=== PATIENT | male | born 1955 | race Caucasian/White ===

== ENCOUNTER 2016-07-13 00:29 | Day surgery (SDC) | payer MEDICARE, MEDICAID ==
[2016-07-13] VITALS (13 sets, daily range): BP systolic 99–125; BP diastolic 59–91; PULSE 69–86; RESP 17–24; O2SAT 94–96
[~2016-07-13] VITALS: Ht 170.2 cm; Wt 119.5 kg
[~2016-07-13 00:29] MED LIST: ATOR20TA PO; CARV6.252 PO; DIGO250T72 PO; FURO40TA4 PO; GABA-502 PO; INSLIS SUBQ; INSU100I13 SUBQ; LISI-571 PO; NITR0.4T SL; SPIR25TA3 PO; WARF4TAB6 PO
[2016-07-13] MEDS ORDERED: Ondansetron 2 mg/mL 2 mL Inj ONE (00:30)
[2016-07-13] MEDS ORDERED: EPHEDrine/NS 5 mg/mL 5 mL Syringe ONE (00:30)
[2016-07-13] MEDS ORDERED: Propofol 10,000 mCg/mL 20 mL Inj ONE (00:30)
[2016-07-13] MEDS ORDERED: fentaNYL-PF 50 mCg/mL 2 mL Inj ONE (00:30)
[2016-07-13] MEDS ORDERED: Dexamethasone 4 mg/mL Inj ONE (00:30)
[2016-07-13] MEDS ORDERED: Lidocaine PF 1% 30 mL Inj ONE (00:30)
[2016-07-13] MEDS ORDERED: 0.9% Sodium Chloride 1,000 ML IV SCH ×2 (07:05→16:25)
[2016-07-13] MEDS ORDERED: Methohexital 10 mg/mL 50 mL Inj IV SCH (07:05)
[2016-07-13 10:20] LABS: BASOPHILS % (AUTO) 0.5 % (0-3); EOSINOPHILS % (AUTO) 3.5 % (0-5); MONOCYTES % (AUTO) 7.3 % (4-12); Mean Corpuscular Hemoglobin 28.9 pg (27.0-35.0); Mean Corpuscular Volume 84.6 fL (81-100); NEUTROPHILS % (AUTO) 76.8 % (40-74); Platelet Count 147 bil/L (150-400)
--- NOTE | 2016-07-13 11:38 | PCM.HPANE ---
Patient Data Date of Service: July 13, 2016 (4658) Surgeon Admitting Provider: Attending Provider:Jesse Glaser MD Primary Care Physician:Danial Gaspar MD Other Provider: Reason for Visit Unspecified Atrial Fibrillation Ht/WT & BMI Height (Feet): 5 Height (Inches): 7.00 Weight (Kilograms): 118.600 Body Mass Index 41.04 Allergies Coded Allergies: No Known Allergies (Verified , 02/05/14) Past Anesthesia History Anesthesia History: Denies:: Abnormal Airway, Anesthesia Reactions, Difficult Intubation, Fam Anesthesia Reaction, Fam Malignant Hypertherm, Malignant Hyperthermia Diabetes History Hx Diabetes?: Yes (BS 97) Type of Diabetes: Type II Glycemic Control: Insulin Dependent MRSA MRSA: No Medications Blood Thinner: Aspirin and Coumadin Active Scripts Atorvastatin (Lipitor)20 Mg Dflqzh49 Mg PO HS 30 Days Prov:Yayo Ness MD 10/19/13 Reported Medications Insulin Glargine (Lantus U100 Solostar Insulin Pen)100 Unit/1 Ml Insuln.pen50 Unit SUBQ QPM-INSULIN #1 PENINJ Ref 0 02/05/14 Warfarin Sodium 4 Mg Tablet4 Mg PO per PCP 30 Days Ref 0 10/15/13 Spironolactone 25 Mg Zxisdi39 Mg PO DAILY #30 TABLET Ref 0 10/15/13 Nitroglycerin SL (Nitrostat)0.4 Mg Tab.subl0.4 Mg SL Q5MIN PRN For Chest Pain # 1 BOTTLE 10/15/13 Lisinopril 5 Mg Tablet5 Mg PO DAILY #30 TABLET Ref 0 10/15/13 Insulin Human Lispro (HumaLOG U100 Insulin Vial)100 Unit/Ml Xrbx51-35 Unit SUBQ AC PRN Per SS #1 VIAL Ref 0 Patient has been taking 15-20units Humalog before meals. This sliding scale below has not worked to bring blood sugars down to a managable level. Blood Sugar Lispro Correction <151 0 units 151-175 1 unit 176-200 2 units 201-225 3 units 226-250 4 units 251-275 5 units 276-300 6 units 301-325 7 units 326-350 8 units 351-375 9 units 376-400 10 units >400 12 units Check blood sugars before meals and at bedtime. Use correction factor only before meals. 10/15/13 Gabapentin 300 Mg Tpfzkwd853 Mg PO TID 30 Days Ref 0 10/15/13 Digoxin 250 Mcg Kwwbgm932 Mcg PO DAILY #30 TABLET Ref 0 10/15/13 Carvedilol 6.25 Mg Tablet6.25 Mg PO BIDWM Ref 0 10/15/13 Furosemide 40 Mg Ctzbqn84 Mg PO BID 30 Days 10/15/13 Discontinued Reported Medications Enoxaparin (Lovenox)100 Mg/Ml Bgxbkxw536 Mg SUBQ Q12 30 Days Ref 0 02/06/14 Potassium Chloride Powder (Klor-Con Powder)20 Meq Omyncy66 Meq PO DAILY 30 Days Ref 0 DISSOLVE CONTENTS OF ONE PACKET IN FULL GLASS OF WATER AND DRINK ONCE DAILY. 10/15/13 History History of ENT Problems?: No HEENT History: Positive for:: Cataracts Denies:: Abnormal Airway Difficult Intubation Dysphagia Hearing Problem Sinus Problem Denture Type: None Teeth Condition: Within Normal Limits Hx of Heart Problems?: Yes Cardiovascular History: Positive for:: Atrial Fibrillation (HX PAF) Cardiac Surgery (CABG 10/2008,AVR 10/2008,HEART CATH W/ STENT 09/2008,03/2012) Chest Pain Congestive Heart Failure (CARDIOMYOPATHY) Edema Heart Murmur (ECHO 05/2012 MPS 12/2013 W/ EF OF 38%) Hypertension (HYPERLIPIDEMIA) Irregular Heartbeat (HX PAF) Valvular Heart Disease (S/P AVR) Denies:: AICD Pacemaker Hx of Respiratory Problem?: Yes Respiratory History: Positive for:: Chest Surgery (quadrupal bypass and stent 2012, [facility]) Dyspnea ([place]) Denies:: Asthma COPD Cough Emphysema Hemoptysis Pneumonia Tuberculosis Use of C-PAP Machine (UNTREATED JEFF SLEEP STUDY 12/20/2013) Hx Neurologic Problems?: Yes Neurological History: Denies:: Alzheimer's Disease CVA Dementia Dizziness Headaches Parkinson's Disease Seizures Hx of GI Problems?: No Hx of Problems?: Yes Genitourinary History: Denies:: HX of Hemodialysis Kidney Stones HX of Peritoneal Dialysis: No Male Hx: Denies:: Prostate Problems Scrotal Mass Testicular Surgery Skin History: Positive for:: History Skin Disorders? (HX PSORIASIS/ECZEMA) Denies:: Pressure Ulcers Hx Musculoskeletal Problems?: No Musculoskeletal History: Denies:: Back Injury Joint Replacement Musculoskeletal Trauma Hx of Psycho/Social Problems?: No Psycho Social History: Denies:: Anxiety Hx Depression Hx Surgeries?: Yes (CABG,AVR,HEART CATH W/ STENT X2) Hx Any Other Health Problems?: Yes Other History: Positive for:: Hospitalization (PANCREATITIS 09/2013) Thyroid Disease Denies:: Cancer Endocrine Disease History Blood Transfusions: Positive for:: Accept Blood Products? Blood Transfusions Denies:: Blood Transfuse Reaction Hx Diabetes: Yes Hx Alcohol Use: NoHx Substance Use: No Smoking Status: Former Smoker Have You Smoked inLast 12 mo: No (QUIT RECENTLY) Stop/Bang Treated for Sleep Apnea?: Yes Do You Have a CPAP Machine?: No S-Snoring: Do You Snore Loudly: Yes JEFF Risk Assessment: High Risk, =/>3 Yes Risk Assessment Category Category 1A: Patient has history of documented sleep apnea, and HAS NOT received any narcotic, sedative or anesthesia administration during this stay. Category 1B: Patient has history of documented sleep apnea, and HAS received any narcotic , sedative or anesthesia administration during this stay Category 2: Patient has SUSPECTED Obstructive Sleep Apnea, and HAS received any narcotic , sedative or anesthesia administration during this stay. Category 3: Patient has SUSPECTED Obstructive Sleep Apnea and HAS NOT received narcotic, sedative or anesthesia administration during this stay. Category 4: Outpatient in Procedural Areas with known sleep apnea or who screen positive for High Risk via the STOP/BANG questionnaire. Exam Exam Vital Signs Vital Signs Date Time Temp Pulse Resp B/P Pulse Ox O2 Delivery O2 Flow Rate FiO2 07/13/16 10:01 36.6 69 17 118/91 94 Room Air General Appearance: Alert, Oriented X3, Cooperative HEENT/AIRWAY: MP 1 Lungs: Clear to Auscultation Heart: Other (afib) Meds/Labs/Diagnostics Labs Test 07/13/16 10:16 White Blood Count 8.0th/mm3 (3.8-10.1) Red Blood Count 4.47mil/mm3 (4.40-5.80) Hemoglobin 12.9g/dL (13.8-17.2) Hematocrit 37.8% (41.0-50.0) Mean Corpuscular Volume 84.6fL (81-100) Mean Corpuscular Hemoglobin 28.9pg (27.0-35.0) Mean Corpuscular Hemoglobin Concent 34.1% (32.0-37.0) Red Cell Distribution Width 16.0% (12.3-15.4) Platelet Count 147bil/L (150-400) Neutrophils (%) (Auto) 76.8% (40-74) Lymphocytes (%) (Auto) 11.8% (14-46) Monocytes (%) (Auto) 7.3% (4-12) Eosinophils (%) (Auto) 3.5% (0-5) Basophils (%) (Auto) 0.5% (0-3) Sodium Level 133mEq/L (134-144) Potassium Level 4.7mEq/L (3.5-5.2) Chloride Level 94mEq/L (97-108) Carbon Dioxide Level 25mmol/L (18-29) Blood Urea Nitrogen 51mg/dL (8-27) Creatinine 1.23mg/dL (0.76-1.27) Estimat Glomerular Filtration Rate 64mL/min (>59) Glucose Level 114mg/dL (60-99) Calcium Level 9.7mg/dL (8.5-10.1) Plan Impression Patient chart reviewed, patient interviewed and anesthestic plan with risks, benefits, and alternatives discussed, and informed consent obtained. NPO per Anesth. Guidelines: Yes ASA Physical Status: ASA3 Severe Disease Anesthetic Plan: GA Bene/Risks/Altern/Consents: Yes HP Complete Prior to Induction: Yes Jake Barba MD July 13, 2016 11:38
[2016-07-13] MEDS ORDERED: Lactated Ringer's 1,000 ML IV SCH (11:39)
[2016-07-13] MEDS ORDERED: Lactated Ringer's 500 ML IV PRN (11:39)
[2016-07-13] MEDS ORDERED: MetoCLOpramide 5 mg/mL 2 mL Inj IVPUSH PRN (11:40)
[2016-07-13] MEDS ORDERED: EPHEDrine Sulfate 50 mg/mL Inj IVPUSH PRN (11:40)
[2016-07-13] MEDS ORDERED: Phenylephrine 10,000 mCg/mL Inj IVPUSH PRN (11:40)
[2016-07-13] MEDS ORDERED: Ondansetron 2 mg/mL 2 mL Inj IVPUSH PRN ×2 (11:40→16:20)
--- NOTE | 2016-07-13 15:40 | NUR ---
Transfer to [facility] Pt transferred to [facility] room 2030. Pt arrived by wheelchair and transferred to bed with SBA. Pt is alert and oriented, is cooperative with all cares, independent in room, and is able to communicate his needs appropriately. Telemetry was initiated and tech was notified. Pt is saline locked with a left peripheral IV in his AC. All admission assessments completed.
[2016-07-13] MEDS ORDERED: HYDROcodone-APAP 5-325 mg Tablet PO PRN (16:20)
[2016-07-13] MEDS ORDERED: Insulin LISPRO 300 Unit/3 mL Inj SUBQ PRN (18:35)
--- NOTE | 2016-07-13 18:35 | HP ---
[address] [address] HISTORY AND PHYSICAL PATIENT: ANNA MARIE [place] : 1955 MR#: [id number] ADMIT: 07/13/2016 JOB ID: [id number] Service Date: 07/13/2016 CHIEF COMPLAINT: Dizziness. HISTORY: The patient is a 60-year-old male who is well known to me since 2008 when he underwent coronary artery bypass surgery x4 on November 08, 2008. He also had mechanical aortic valve replacement at that time. His ejection fraction was 25% to 30%. He was in sinus rhythm in December 2015. When he returned for followup in May 2016, he was found to be in atrial fibrillation of unknown duration. The patient reports more short of breath. He felt dizzy at times. He denies chest discomfort, orthopnea, or PND. The patient came in today for cardioversion. This was performed with biphasic 120 and 150 joules. However, the patient developed asystole which required temporary transcutaneous pacing for 10 seconds before he went back into atrial fibrillation. While he was on the monitor, he developed asystole for 7 seconds. PAST MEDICAL HISTORY: 1. Coronary artery bypass surgery x4 and mechanical aortic valve replacement on November 08, 2008. 2. Ischemic cardiomyopathy with ejection fraction 25% to 30%. 3. Hypertension. 4. Type 2 diabetes mellitus. 5. Hyperlipidemia. 6. Obstructive sleep apnea, untreated. 7. History of alcohol abuse, quit in November 2015. 8. Morbid obesity. 9. Psoriasis. CURRENT MEDICATIONS: 1. Atorvastatin 40 mg. h.s. 2. Carvedilol 6.25 mg b.i.d. 3. Digoxin 0.125 mg daily. 4. Furosemide 40 mg b.i.d. 5. Gabapentin 300 mg t.i.d. 6. Lantus insulin 50 units h.s. 7. Bisoprolol 15-20 units before meals. 8. Lisinopril 5 mg daily. 9. Nitroglycerin 0.4 mg sublingual p.r.n. 10. Spironolactone 25 mg daily. 11. Warfarin 4 mg adjusted for INR between 2 and 3. ALLERGIES: No known allergies. SOCIAL HISTORY: The patient used to smoke off and on, one pack per day for about 15 years. He quit smoking in the . He used to drink every night about three beers on the weekdays and four on the weekends. He quit drinking last year. FAMILY HISTORY: His mother and brother have diabetes. His father suffered a heart attack. REVIEW OF SYSTEMS: All 10 systems are reviewed and no significant change from previously stated above. EXAMINATION: Reveals a markedly obese male appearing in no acute distress. Temperature is 36.1. Blood pressure is 105/60. Pulse 64, irregularly irregular. Skin is warm and dry. Head and face have normal configuration. JVP was difficult to evaluate due to nuchal obesity. Chest: Normal expansion. Lungs are clear to auscultation. Heart: The first heart sound is variable. Mechanical 2nd heart sound. Grade 1/6 systolic ejection murmur at the left upper sternal border. Abdomen: Obese, nontender. Back: No CVA tenderness. Extremities: 2+ edema. No clubbing or cyanosis. Skin has hyperpigmentation in the lower extremity. Neurologic: Grossly intact. IMPRESSION: 1. Transient asystole for 7 seconds on monitor. 2. Atrial fibrillation of unknown duration. 3. History of congestive heart failure due to combined chronic systolic and diastolic heart failure. 4. Morbid obesity. 5. Status post coronary artery bypass surgery x4 and mechanical aortic valve replacement in 2009. 6. History of [id number]-[id number] smoking. 7. Hypertension. 8. Hyperlipidemia. 9. History of alcohol abuse. 10. Obstructive sleep apnea, untreated. PLAN: I will admit the patient to telemetry unit for observation. He will benefit from ICD implantation. MARIELOS
[2016-07-13] MEDS ORDERED: Insulin GLARgine 100 Unit/mL Syringe SUBQ SCH (21:00)
--- NOTE | 2016-07-13 21:52 | OP ---
[address] [address] OPERATIVE REPORT PATIENT: ANNA MARIE [place] : 1955 MR#: [id number] ADMIT: 07/13/2016 JOB ID: [id number] DATE OF SURGERY: 07/13/2016 SURGEON: Jesse Glaser PREOPERATIVE DIAGNOSIS(ES): Atrial fibrillation. POSTOPERATIVE DIAGNOSIS(ES): Atrial fibrillation. PROCEDURE: 1. Synchronous cardioversion. 2. Temporary transcutaneous pacing. PATIENT PROFILE: The patient is a 60 years old male with history of coronary artery bypass surgery x4 in 2008, obstructive sleep apnea, hypertension, hyperlipidemia, diabetes, history of tobacco and alcohol use. The patient has ischemic cardiomyopathy with ejection fraction of 25% to 30%. He went into atrial fibrillation of unknown duration. METHOD: Synchronous cardioversion was performed in the [facility] under IV anesthesia provided by Dr Barba. It was delivered with biphasic 120 and 150 joules. The patient developed transient asystole. Temporary transcutaneous pacing was performed for 10 seconds. The patient remains in atrial fibrillation. [facility]
[2016-07-14] MEDS ORDERED: Sodium Chloride LOK Flush 10 mL Syringe IVFLUSH SCH (00:30)
[2016-07-14 04:46] VITALS: BP 93/56; PULSE 70; RESP 18; O2SAT 94
[2016-07-14 04:49] VITALS: BP 97/64
--- NOTE | 2016-07-14 05:24 | NUR ---
Cardiac/Pain Pt Tele Afib/Flutter with IVCD, Pt had a 3.42 and 4.23 second pause this shift, Pt was asymptomatic. Pt c/o pain 10/10 in legs from neuropathy, administered 2 tabs Percocet and effective Pt able to rest for some of shift. Pt is scheduled to meet with Dr. Hampton in the AM for discussion regarding pacemaker placement. VSS no c/o of CP or SOB. Pt placed on 2L NC while sleeping as pt is awaiting a sleep study.
[2016-07-14 09:16] VITALS: BP 106/70; PULSE 67; RESP 16; O2SAT 95
--- NOTE | 2016-07-14 10:20 | PCM.DIMED ---
Discharge Instructions Date of Service July 14, 2016 Dates of Hospitalization 07/13/2016 Discharge Diagnosis Discharge Diagnosis atrail fibrillation with pause Diet Heart Healthy Activity No restrictions Call your provider Other (dizziness or passing out) Patient Instructions Follow-up Provider: Jesse Glaser MD Follow-up with PCP in: 1 week Jesse Glaser MD July 14, 2016 10:20
[2016-07-14 11:06] VITALS: PULSE 68
--- NOTE | 2016-07-14 11:53 | NUR ---
Social Work Note: Screen Note/Discharge Data& Assessment: EMR reviewed. Per pt is medically improved and ready for discharge. Vinay Smith is a 60 year old male here as a day surgery cardiology pt. Per pt is medically ready for discharge. SW me with pt and pt family at bedside to assess for any unmet needs. Pt and pt sister deny any other needs. Pt returning home with his sister via POV. Pt is not being started on any new medications per MD discharge paperwork. Pt is independent at baseline and independent in his room. No other discharge needs identified. Plan: Per pt is medically ready to discharge home via POV. Pt and pt sister deny any other needs. No other discharge needs identified. BROOKS Calderon
--- NOTE | 2016-07-14 13:32 | DIS ---
[address] [address] DISCHARGE SUMMARY PATIENT: ANNA MARIE [place] : 1955 MR#: [id number] ADMIT: 07/13/2016 JOB ID: [id number] DIS: 07/14/2016 DATE OF DISCHARGE: 07/14/2016 DISCHARGE DIAGNOSES: 1. Symptomatic bradycardia due to transient asystole. 2. Atrial fibrillation of unknown duration. SECONDARY DIAGNOSES: 1. Coronary artery bypass surgery x4 and mechanical aortic valve replacement on November 08, 2008. 2. Ischemic cardiomyopathy with ejection fraction 25% to 30%. 3. Hypertension. 4. Hyperlipidemia. 5. Type 2 diabetes mellitus. 6. Obstructive sleep apnea, untreated. 7. Morbid obesity. 8. History of 15 pack-year smoking. 9. History of alcohol abuse. HOSPITAL COURSE: The patient was found to have atrial fibrillation. The last time that he was in sinus rhythm was in December of 2015. He underwent unsuccessful synchronous cardioversion on July 13, 2016. While he was on the monitor, he was found to have a 7 second pause. The patient was put in observation overnight in the telemetry unit. While he was on the monitor, he had two more pauses that lasted for 6 seconds and 4 seconds. I discussed his case with Dr. Hampton. He agreed to perform biventricular ICD for this patient next week. DISCHARGE MEDICATIONS: Remain the same.
== END 2016-07-14 12:23 | disposition home or self-care (01) ==
LOC: SOUO 00:29 → PCC 14:53 → SOUO 07-14 12:23
PROVIDERS: ATTEND Internal Medicine Interventional Cardiology
DX: I48.91 Unspecified atrial fibrillation (principal); R00.1 Bradycardia, unspecified; E11.9 Type 2 diabetes mellitus without complications; I50.42 Chronic combined systolic (congestive) and diastolic (congestive) heart failure; I25.10 Atherosclerotic heart disease of native coronary artery without angina pectoris; I25.5 Ischemic cardiomyopathy; I10 Essential (primary) hypertension; E78.5 Hyperlipidemia, unspecified; G47.33 Obstructive sleep apnea (adult) (pediatric); E03.9 Hypothyroidism, unspecified; E66.01 Morbid (severe) obesity due to excess calories; Z68.41 Body mass index [BMI] 40.0-44.9, adult; Z95.1 Presence of aortocoronary bypass graft; Z79.4 Long term (current) use of insulin; Z95.2 Presence of prosthetic heart valve; Z79.01 Long term (current) use of anticoagulants; Z87.891 Personal history of nicotine dependence; Z87.898 Personal history of other specified conditions
CPT/HCPCS: 36415; 80048; 85025; 92960; 93005; J0690; J1100; J1815; J2250; J2405; J3010

== ENCOUNTER 2016-07-24 00:26 | Day surgery (SDC) | payer MEDICARE, MEDICAID ==
[~2016-07-24] VITALS: Ht 170.2 cm; Wt 118.0 kg
[2016-07-24] VITALS (11 sets, daily range): BP systolic 90–121; BP diastolic 53–86; PULSE 58–64; RESP 14–18; O2SAT 90–99
[~2016-07-24 00:26] MED LIST changes: -FURO40TA4 PO
[2016-07-24] MEDS ORDERED: 0.9% Sodium Chloride 1,000 ML IV SCH (06:55)
[2016-07-24 12:11] LABS: BASOPHILS % (AUTO) 0.5 % (0-3); EOSINOPHILS % (AUTO) 2.7 % (0-5); MONOCYTES % (AUTO) 8.3 % (4-12); Mean Corpuscular Volume 79.8 fL (81-100); NEUTROPHILS % (AUTO) 75.5 % (40-74); Platelet Count 141 bil/L (150-400)
[2016-07-24 12:25] LABS: INR 1.92 ratio
[2016-07-24] MEDS ORDERED: Vancomycin 1,000mg/200 mL NS IV ONE (12:36)
[2016-07-24] MEDS ORDERED: Heparin 10,000 Unit/1,000 mL NS Premix IV ONE (13:32)
[2016-07-24] MEDS ORDERED: fentaNYL-PF 50 mCg/mL 2 mL Inj ONE ×2 (13:33→16:40)
[2016-07-24] MEDS ORDERED: Vancomycin 1,000 mg Inj ONE (13:33)
[2016-07-24] MEDS ORDERED: Bupivacaine-MPF 0.5% 30 mL Inj ONE (13:33)
[2016-07-24] MEDS ORDERED: 0.9% Sodium Chloride 250 ML ONE (13:34)
[2016-07-24] MEDS ORDERED: Ondansetron 2 mg/mL 2 mL Inj ONE (13:48)
[2016-07-24] MEDS: 0.9% Sodium Chloride 1,000 ML IV SCH (16:49)
[2016-07-24] MEDS ORDERED: Ondansetron 2 mg/mL 2 mL Inj IVPUSH PRN (16:50)
--- NOTE | 2016-07-24 17:42 | DRSVH ---
PROCEDURE: X-RAY CHEST ONE VIEW, PORTABLE ([id number]) INDICATIONS: For new leads placed TECHNIQUE: One view of the chest was acquired. COMPARISON: [facility], CR, XR CHEST 2VW, 05/27/2016, 13:15. FINDINGS: Surgical changes and devices: Sternotomy with mediastinal postoperative changes, cardiac prosthesis a nd left-sided cardiac pacer. Lungs and pleura: New ill-defined right perihilar pulmonary opacities. Stable small right-sided pleur al effusion with minimal right basilar atelectasis. Left lung is clear. Mediastinum: Stable enlargement of the cardiac mediastinal silhouette. Bones and chest wall: No suspicious bony lesions. Overlying soft tissues appear unremarkable. IMPRESSION: 1. New ill-defined right perihilar pulmonary opacities may represent early infection. 2. Stable right-sided pleural effusion with right basilar atelectasis. Stable postoperative changes. Dictated by: Loy Chopra M.D. on 07/24/2016 at 17:39 Approved by: Loy Chopra M.D. on 07/24/2016 at 17:40
[2016-07-24] MEDS: HYDROcodone-APAP 5-325 mg Tablet PO PRN (20:07)
[2016-07-24] MEDS ORDERED: Insulin LISPRO Low-Dose Scale SUBQ PRN (20:10)
[2016-07-24] MEDS ORDERED: Dextrose 10% 250 ML IV PRN (20:30)
[2016-07-24] MEDS ORDERED: Vancomycin Inj 1,000 MG in IV Premix 1 EACH IV ONE (20:30)
--- NOTE | 2016-07-24 20:45 | PCM.CONPHA ---
Subjective Date of Service: July 24, 2016 Reason for Pharmacy Consult: Anticoagulation Management Objective Vital Signs Date Time Temp Pulse Resp B/P Pulse Ox O2 Delivery O2 Flow Rate FiO2 07/24/16 20:01 36.5 60 16 95/60 94 Room Air 07/24/16 19:00 64 16 113/79 99 Nasal Cannula 2.00 07/24/16 18:30 60 16 113/70 97 Nasal Cannula 2.00 07/24/16 18:15 60 16 121/86 97 Nasal Cannula 2.00 07/24/16 18:00 60 16 102/70 97 Nasal Cannula 2.00 07/24/16 17:45 60 16 98/78 97 Nasal Cannula 2.00 07/24/16 17:28 60 16 96/63 95 Nasal Cannula 2.00 07/24/16 17:25 60 16 90/65 90 Room Air 07/24/16 17:19 60 16 96/65 90 Room Air 07/24/16 12:12 36.9 58 14 94/54 95 Room Air Weight (Kilograms): 118.000 Height (Feet): 5 Height (Inches): 7.00 Test 07/24/16 12:00 07/24/16 20:19 White Blood Count 7.5th/mm3 (3.8-10.1) Red Blood Count 4.25mil/mm3 (4.40-5.80) Hemoglobin 11.9g/dL (13.8-17.2) Hematocrit 33.9% (41.0-50.0) Mean Corpuscular Volume 79.8fL (81-100) Mean Corpuscular Hemoglobin 28.0pg (27.0-35.0) Mean Corpuscular Hemoglobin Concent 35.1% (32.0-37.0) Red Cell Distribution Width 16.1% (12.3-15.4) Platelet Count 141bil/L (150-400) Neutrophils (%) (Auto) 75.5% (40-74) Lymphocytes (%) (Auto) 12.7% (14-46) Monocytes (%) (Auto) 8.3% (4-12) Eosinophils (%) (Auto) 2.7% (0-5) Basophils (%) (Auto) 0.5% (0-3) Prothrombin Time 20.8sec (8.1-12.5) Prothromb Time International Ratio 1.92ratio Hold Urine Received (Received) Assessment/Plan Assessment/Plan WARFARIN MANAGEMENT A\ 61yo M s/p ICD placement with history of Mechanical Aortic Valve Home Warfarin 4mg daily Goal INR 2-3 Current INR=1.92 HCT=33.9, Skw=646 P\ Continue home Warfarin 4mg tonight and check an INR with AM labs. Alvaro Nicolas [facility] July 24, 2016 20:45
[2016-07-25] MEDS: HYDROcodone-APAP 5-325 mg Tablet PO PRN (02:13)
[2016-07-25] MEDS: 0.9% Sodium Chloride 1,000 ML IV SCH ×2 (02:49→12:49)
[2016-07-25 03:44] VITALS: BP 101/62; PULSE 61; RESP 18; O2SAT 94
[2016-07-25 03:48] LABS: INR 1.9 ratio
[2016-07-25] MEDS ORDERED: Vancomycin Inj 1,000 MG in IV Premix 1 EACH IV ONE ×2 (04:50→06:53)
[2016-07-25 05:45] VITALS: PULSE 61
--- NOTE | 2016-07-25 06:26 | NUR ---
Transfer from [facility] Patient arrived from [facility] to [facility] 2026 at 2009. Pressure dressing removed from left upper chest ICD insertion site; dressing underneath is clean/dry/intact. Patient reports moderate incisional pain that responds well to hydrocodone-acetaminophen. Up to bathroom with standby assist. Left arm sling in place.
--- NOTE | 2016-07-25 06:29 | OP ---
[address] [address] OPERATIVE REPORT PATIENT: ANNA MARIE [place] : 1955 MR#: [id number] ADMIT: 07/24/2016 JOB ID: [id number] DATE OF SURGERY: 07/24/2016 PREOPERATIVE DIAGNOSIS(ES): 1. Severe ischemic cardiomyopathy with ejection fraction 20-25%. 2. Bifascicular block with wide QRS duration. 3. [place] Heart Association class 3 heart failure symptoms. 4. Sick sinus syndrome. 5. Paroxysmal atrial fibrillation. POSTOPERATIVE DIAGNOSIS(ES): 1. Severe ischemic cardiomyopathy with ejection fraction 20-25%. 2. Bifascicular block with wide QRS duration. 3. [place] Heart Association class III heart failure symptoms. 4. Sick sinus syndrome. 5. Paroxysmal atrial fibrillation. PROCEDURES PERFORMED: 1. Biventricular ICD implantation with a multitude lead ICD generator placement, RV ICD lead, coronary sinus left ventricular lead placement, right atrial pacemaker lead placement. 2. Coronary sinus venogram. 3. Fluoroscopy. SURGEON: Basilio Hampton MD, electrophysiology. PERSONAL LINES ADVISOR: Rosi Harry. IMPLANTED DEVICES: 1. [employer] pulse generator, model FG9883-02S, serial number [id number]. 2. RV lead [employer] 7122Q 65 cm, serial number [id number]. 3. LV lead, [employer] 1458Q 86 cm, serial number [id number]. 4. RA lead, [employer] 208TC 52 cm, serial number [id number]. ANESTHESIA: Bolus dosing of Versed and fentanyl to restore her prolonged sedation. INDICATION: The patient is a pleasant 61-year-old man with severe ischemic cardiomyopathy, aortic valve replacement with a mechanical valve, paroxysmal atrial fibrillation, advanced heart failure symptomology, conduction disease with wide QRS duration. After discussion of risks and benefits of biventricular ICD implantation for primary prevention of sudden cardiac arrest and cardiac resynchronization therapy, he opted to proceed. PROCEDURAL DESCRIPTION: Following informed signed consent, the patient was taken to the EP laboratory in a fasting state where he was prepped in the usual sterile fashion. The left infraclavicular region was infiltrated with 40 cc of a 50/50 mixture of bupivacaine and lidocaine. Once adequate anesthesia was achieved, a 3 cm transverse incision was performed 2 cm below the left clavicle. Dissection carried to the pectoralis fascia and a pocket was then fashioned using combination of electrocautery and blunt dissection. Once adequate hemostasis had been achieved, access to the left axillary vein was gotten with a micropuncture needle, deploy three 0.035, 3 mm J guidewire. Over the first of these, a 7-Bhutanese tear-away sheath was advanced and guidewire was removed. An active fixation ICD lead was advanced to the RV outflow tract the RV apex. The lead was affixed in position using associated fixation screw. It was connected to the external analyzer and demonstrated appropriately sensed R waves. Impedance and capture threshold was checked to 10 V and there was no evidence of diaphragmatic stimulation. Attention was now paid to placement of the left ventricular lead. Over another of the previously deployed J guidewires, a 9-Bhutanese tear-away sheath was advanced. Once the guidewire was removed, a [employer] CS delivery sheath was delivered over a deflectable decapolar EP catheter, which was then used to engage the coronary sinus. With some effort ultimately the sinus was cannulated. A hand injection of contrast revealed a posterolateral branch at the 4 o'clock position off the mitral annulus. This was chosen as our branch of choice. A quadripolar LV lead was then brought to the field and advanced with the branch of choice over a Whisper wire. It was connected to the external analyzer and demonstrated appropriately sensed R waves. Impedance and capture threshold was checked at 10 V and the mid to configuration showed no evidence of diaphragmatic stimulation. The Whisper wire was removed and a finishing stylet was placed. The short 9-Bhutanese sheath was slit loose. The long sheath was maintained for stability while we placed the atrial lead. We then addressed the right atrial lead. Over the last of the previously deployed J guidewire, a 6-Bhutanese tear-away sheath was advanced and subsequently removed. An active fixation pacing lead was advanced in the right atrial appendage. Extensive mapping for an extended period of time was undertaken in the right atrium with poor sensing and/or poor threshold throughout the atrium as well as poor stability in multiple positions. Ultimately a position was found with adequate sensing and threshold. The patient will be pacing the vast majority of the time in the atrium and as such threshold was favored. The lead was affixed in position using associated fixation screw. It was connected to the external analyzer and demonstrated appropriately sensed P waves. Impedance and capture threshold was checked with 10 V and there was no evidence of diaphragmatic stimulation. Finally, the left ventricular lead was addressed. It had moved back in the process of placing the right atrial lead. I redeployed the Whisper wire, advanced it further, put the finishing stylet back in and ultimately was able to remove the delivery sheath while maintaining CS lead stability. Once the position and redundancy of both leads had been confirmed with multiple fluoroscopic views, the leads are anchored to the prepectoralis fascia, using the associated anchoring sleeves and 2-0 Ethibond sutures. The pocket was then copiously irrigated with antibiotic solution. The leads were connected to a generator. The generator system pocket was affixed to the floor of the pocket using 1-0 Ti-Cron suture. The incision was then closed with running layers of absorbable suture. The wound was dressed with skin adhesive and dressing. At the end of the procedure the needle, sponge, instrument counts were all correct. COMPLICATIONS: None. ESTIMATED BLOOD LOSS: 30 cc. DEVICE MEASURED DATA: 1. Right ventricular lead 10 mV, 480 ohms, 0.5 V at 0.4 msec. 2. LV lead, 660 ohms, 1.5 V at 0.5 msec. 3. Right atrial lead 0.3-0.5 mV, P-wave 560 ohms, 1 V at 0.5 msec. FINAL PROGRAM PARAMETERS: 1. DDDR 60-140 beats per minute. 2. VF zone at 187 beats per minute charge, followed by maximum output shocks. 3. VT monitor zone 150 beats per minute. IMPRESSION: Successful biventricular implantable cardioverter defibrillator implantation. PLAN: 1. Stat portable chest x-ray. 2. PA and lateral chest x-ray in the morning, . 3. IV vancomycin through tomorrow. 4. Doxycycline x7 days. 5. Wound check one week. ATTENDING STATEMENT: Basilio Hampton M.D. electrophysiology attending, was present for and supervised/performed all aspects of this procedure.
--- NOTE | 2016-07-25 07:25 | PCM.PHAPRO ---
Progress Date of Service: July 25, 2016 Warfarin dosing Date July 25-June INR 1.92 1.90 INR change -0.02 Warf Dose 4 4 A/ Very slightly subtherapeutic at 1.90. P/ Continue with home dosing with 4mg of warfarin today and reevaluate with AM labs tomorrow. Migel Eldridge July 25, 2016 07:25
[2016-07-25 08:56] VITALS: BP 108/64; PULSE 66; RESP 16; O2SAT 96
--- NOTE | 2016-07-25 09:14 | DRSVH ---
PROCEDURE: X-RAY CHEST, TWO VIEWS ([id number]) INDICATIONS: For new lead placement TECHNIQUE: 2 views of the chest were acquired. COMPARISON: [facility], CR, XR CHEST 1VW (PORTABLE), 07/24/2016, 17:22. FINDINGS: Surgical changes and devices: Median sternotomy. Left-sided pacer. Lungs and pleura: No pneumothorax. Small right pleural effusion. Right basilar atelectasis versus pn eumonia. Mediastinum: Mediastinal contours are normal. Heart size is enlarged. Bones and chest wall: No suspicious bony abnormalities. Soft tissues appear unremarkable. IMPRESSION: Right basilar pneumonia and small parapneumonic effusion. Cardiomegaly. Dictated by: Gisella Rodriguez M.D. on 07/25/2016 at 9:11 Approved by: Gisella Rodriguez M.D. on 07/25/2016 at 9:13
--- NOTE | 2016-07-25 09:52 | PCM.DIMED ---
Discharge Instructions Date of Service July 25, 2016 Dates of Hospitalization Discharge Diagnosis Discharge Diagnosis Ischemic Cardiomyopathy LV Dysfunction with EF 25-30% Chronic Systolic HF Coronary Artery Disease Diet Discharge Diet: Low fat, Low Sodium, Heart Healthy, Diabetic Activity Discharge Activity: Other (Do not extend left elbow high above shoulder for one month. Do not lift, push or pull more than 10 lbs with the left arm for one month.) Call your provider Call your provider for: Fever or Chills, Bleeding, Excessive diarrhea Patient Instructions Follow-up in: 1 week Mid-level Provider (F9): Jeremiah Rai PA-C Follow-up with Mid-level in: 5 weeks Jeremiah Rai PA-C July 25, 2016 09:52
[2016-07-25] MEDS ORDERED: CEPH500C PO (10:10)
[2016-07-25] MEDS ORDERED: LISI-571 PO (10:15)
[2016-07-25] MEDS ORDERED: HYDR-4003 PO (10:15)
[2016-07-25] MEDS ORDERED: FURO40TA4 PO (10:15)
[2016-07-25 10:40] VITALS: PULSE 66
--- NOTE | 2016-07-25 10:44 | NUR ---
Social Work- Data: EMR reviewed. Pt is a 61 year old male admitted [facility] [place]omopathy per H&P. Pt has MCR and DSHS Supp. Pt resides in [place] where he was independent at baseline up until one month ago. ESDRAS received requested in multi-disciplinary rounds to meet with pt and pt's sister Savannah Marvin [phone] regarding pt's discharge plan. Pt is able to return home with his sister, though he had some concerns about transporting in her car that is low to the ground with bucket seats. SW offered various transportation options including-- taxi and wheelchair van, both private pay, or bus transportation. Pt declined these transportation methods, agreeable to transporting with his sister. Pt has DSHS but is not eligible for DSHS transportation as he did not arrive to hospital by EMS. Pt and sister are also concerned with caregiving in the home. Pt's sister is available to assist pt but she also has medical concerns and is getting burned out, per her report. ESDRAS discussed with pt and sister respite beds at assisted living facilities and private pay caregivers, but they declined both of these options due to financial concerns. Home Health is not medically indicated at this time. Pt reports that he is receiving a [facility] assessment on July 31 with Ara Correa and will be set up with case management and caregivers at that time. ESDRAS placed call and left message for Ara at [facility] [phone]. Pt to discharge to sisters home with sister to assist until pt is able to obtain [facility] services. Assessment: Pt who will require assistance at home, eligible for [facility] Plan: Pt to discharge to sisters home with sister to assist until pt is able to obtain [facility] services. ESDRAS has called [facility] and left message regarding expediting pt's assessment. Shahida Montero, FUR VAULT ATTENDANT
[2016-07-25 12:27] VITALS: PULSE 62
--- NOTE | 2016-07-25 14:16 | DIS ---
[address] [address] DISCHARGE SUMMARY PATIENT: ANNA MARIE [place] : 1955 MR#: [id number] ADMIT: 07/24/2016 JOB ID: [id number] DIS: 07/25/2016 REASON FOR ADMISSION: Biventricular ICD implant. CHIEF COMPLAINT: Dyspnea and fatigue. BRIEF HISTORY: This patient is a pleasant 60-year-old man with a history of coronary artery disease and prior bypass surgery who has an ischemic cardiomyopathy. He is also troubled with hypertension, diabetes and hyperlipidemia. Despite maximal medical therapy, he continues to have [place] Heart Association class III heart failure symptoms. As adjunctive therapy of heart failure treatments and to prevent sudden cardiac arrest, plans were made to implant a biventricular pacing defibrillator. COURSE IN HOSPITAL: The patient was admitted to the [facility] and taken to the clinical genetics laboratory chief where he received the three lead defibrillator system without complications. He was taken back to the [facility] for recovery from sedation and then transferred up to the [facility] for overnight telemetry and observation. He did well overnight and in the morning was ambulatory without difficulty. He had some tenderness at the ICD site but no active chest pain and was not dyspneic or lightheaded. The ICD site is closed and dry. There is no hematoma. Chest x-ray shows good lead positions and no pneumothorax. Device evaluation shows excellent capture and sensing thresholds for all three leads. He felt well for discharge home. DISPOSITION: The patient was discharged home in good condition with a followup appointment at the [facility] Cardiology office in one week. He was asked not to extend his left elbow high above his shoulder for one month and not to lift, push or pull more than 10 pounds with the left arm for one month. He will take medications as prescribed and follow his Heart Healthy, diabetic, low sodium diet. DISCHARGE MEDICATIONS: 1. Cephalexin 500 mg b.i.d. for one week. 2. Furosemide 80 mg once daily 3. Hydrocodone/acetaminophen 5/325 mg, one tablet q.4 h. p.r.n. pain, quantity of 14 tablets, with no refills. 4. Atorvastatin 40 mg q.h.s. 5. Carvedilol 6.25 mg b.i.d. 6. Digoxin 125 mcg daily. 7. Gabapentin 300 mg t.i.d. 8. Insulin Lantus 15 units subcu. 9. Insulin lispro 15-20 units subcu with meals and as needed. 10. Nitroglycerin sublingual tablets 0.4 mg p.r.n. chest pain. 11. Spironolactone 25 mg daily. 12. Warfarin 4 mg daily or as directed by his Anticoagulation Clinic. 13. Lisinopril 2.5 mg daily. FINAL DIAGNOSES: 1. Ischemic cardiomyopathy. 2. Left ventricular dysfunction with ejection fraction 25% to 30%. 3. Chronic systolic heart failure. 4. Coronary artery disease. 5. Diabetes. 6. History of hypertension.
--- NOTE | 2016-07-25 14:21 | NUR ---
Discharge Pt discharged to home today at ~1340 with family. Pt given discharge educational materials on pacemakers and new prescriptions. Pt requesting transport and requested info concerning home caregivers, SW notified, see SW note for details. Pt's IV access D/C'd and intact. Pt's am BP low normotensive which is baseline per report, spoke with PA, Pt given all am medications, Pt had no c/o dizziness prior to discharge. Pt instructed to f/u with cardiology at outlined in discharge instructions. Pt verbalized understanding of all discharge instructions. All belongings accompanied Pt at time of discharge. Pt's sister called back in ~15min ago stating that [facility] was not open until Wednesday and that that was where the Pt's prescription was transmitted to, Pt's sister stated that the [facility] in [place] was open. Jeremiah Cecelia was notified who verbalized that he would call the prescription to [facility].
== END 2016-07-25 13:45 | disposition home or self-care (01) ==
LOC: SOUO 00:26 → PCC 19:15 → SOUO 07-25 13:45
PROVIDERS: ATTEND Internal Medicine Cardiovascular Disease
DX: I25.5 Ischemic cardiomyopathy (principal); Z00.6 Encounter for examination for normal comparison and control in clinical research program; I50.22 Chronic systolic (congestive) heart failure; I45.2 Bifascicular block; I49.5 Sick sinus syndrome; I48.0 Paroxysmal atrial fibrillation; Z95.2 Presence of prosthetic heart valve; I25.10 Atherosclerotic heart disease of native coronary artery without angina pectoris; Z95.1 Presence of aortocoronary bypass graft; I10 Essential (primary) hypertension; E78.5 Hyperlipidemia, unspecified; E11.9 Type 2 diabetes mellitus without complications; Z79.4 Long term (current) use of insulin; Z79.02 Long term (current) use of antithrombotics/antiplatelets
CPT/HCPCS: 33225; 33249; 36415; 71010; 71020; 85025; 85610; 93005; 99152; 99153; C1730; C1769; C1777; C1882; C1892; C1898; C1900; J1644; J1815; J2250; J3010; J3370; J7050; Q9967